=== PATIENT | female | born 1990 | race Caucasian/White ===

== ENCOUNTER 2018-10-21 23:06 | Emergency (ER) | payer BC, OTHER ==
[~2018-10-21] VITALS: Ht 154.9 cm; Wt 77.1 kg
[2018-10-21] MEDS ORDERED: EPIPEN0.3 MG/0.1 (23:12)
[2018-10-21] MEDS ORDERED: SERTRALINE HCL50 MG PO (23:12)
[2018-10-21] MEDS ORDERED: PEPCID40 MG PO (23:13)
[2018-10-22] MEDS ORDERED: EPIPEN0.3 MG/0.1 IM (01:53)
[2018-10-22 01:58] VITALS: BP 106/76
== END 2018-10-22 01:59 | disposition home or self-care (01) ==
LOC: ER 23:06
DX: O99.711 Diseases of the skin and subcutaneous tissue complicating pregnancy, first trimester (principal); T38.5X5A Adverse effect of other estrogens and progestogens, initial encounter; Y92.89 Other specified places as the place of occurrence of the external cause; Z3A.08 8 weeks gestation of pregnancy

== ENCOUNTER 2019-06-03 09:56 | Emergency (ER) | payer BC, OTHER ==
[~2019-06-03] VITALS: Ht 154.9 cm; Wt 84.8 kg
[~2019-06-03 09:56] MED LIST: EPIPEN0.3 MG/0.1; EPIPEN0.3 MG/0.1 IM; PEPCID40 MG PO; SERTRALINE HCL50 MG PO
[2019-06-03 10:09] LABS: URINE BILIRUBIN NEGATIVE (Negative); URINE BLOOD 2+ (Negative); URINE CLARITY CLEAR; URINE COLOR YELLOW; URINE GLUCOSE-RANDOM* NEGATIVE (Negative); URINE KETONES NEGATIVE (Negative); URINE NITRITE-REFLEX NEGATIVE (Negative); URINE PROTEIN (DIPSTICK) 1+ (Negative); URINE SPECIFIC GRAVITY <= 1.005 (1.005-1.035); URINE UROBILINOGEN 0.2 E.U./dl (0.2-1.0)
[2019-06-03 10:11] LABS: URINE LEUKOCYTES-REFLEX 2+ (Negative)
[2019-06-03 10:13] LABS: HEMATOCRIT 28.6 % (37.0-47.0); HEMOGLOBIN 8.7 gm/dL (12.0-15.0); MCH 21.7 pg (26.0-34.0); MCHC 30.5 g/dL (28.0-37.0); PLATELET COUNT 241 thou/uL (150-400); RBC 4.03 mil/uL (4.20-5.00); RDW 19.4 % (10.5-14.5); WBC 13.9 thou/uL (4.0-11.0)
[2019-06-03 10:21] LABS: BACTERIA-REFLEX None Seen /HPF (None Seen); CASTS None Seen /LPF (None Seen); CRYSTALS None Seen /LPF (None Seen); SQUAMOUS 0-3 Few /LPF (0-3); URINE RBC 0-2 Rare /HPF (0-2); URINE WBC-REFLEX 6-15 Few /HPF (0-5)
[2019-06-03 10:25] LABS: ANION GAP 12 mmol/L (7-16); APTT 24.5 Seconds (24.5-32.8); BUN 8 mg/dL (7-18); CALCIUM 9.3 mg/dL (8.5-10.1); CHLORIDE 105 mmol/L (98-107); CO2 24 mmol/L (21-32); CREATININE 0.8 mg/dL (0.6-1.0); GLUCOSE 91 mg/dL (74-106); POTASSIUM 3.8 mmol/L (3.5-5.1); PROTIME 9.4 Seconds (9.3-11.4); SODIUM 141 mmol/L (136-145)
[2019-06-03 10:32] LABS: MAGNESIUM 1.9 mg/dL (1.8-2.4); SGOT 26 U/L (15-37); SGPT 23 U/L (30-65); TOTAL BILIRUBIN 0.4 mg/dL (<0.1-1.0); TOTAL PROTEIN 7.7 g/dL (6.4-8.2); TROPONIN-I <0.06 ng/mL (<0.06); URIC ACID* 7.3 mg/dL (2.6-7.2)
[2019-06-03] MEDS ORDERED: ONDANSETRON ODT8 MG PO (10:38)
[2019-06-03] MEDS ORDERED: BACTRIM DS TAB1 EACH PO (10:38)
[2019-06-03 10:42] LABS: ABSOLUTE NEUTROPHILS 10.1 thou/uL (1.4-8.2); PLATELET ESTIMATE NORMAL
[2019-06-03 11:00] VITALS: BP 115/71
--- NOTE | 2019-06-04 14:19 | EKG ---
[address] [place] [address] ELECTROCARDIOGRAM REPORT Name: CHRISTOPHER FAULKNER Room #: [facility]P [facility]UMRadhaRadha#: [id number] ������������������ Admission: 06/03/19 ������������������ Attend Phys: Discharge: 06/03/19 ������������������ Date of : 89 Report #: [id number] ����������������������������������������������������������������� [id number] THIS REPORT FOR: //name// [facility] ED Test Date: 2019-06-03 Test Time: 10:02:46 Pat Name: CHRISTOPHER FAULKNER Department: Room: Gender: F [employer]: [facility] 1990 Requested By: Castro Diaz Order Number: [id number] MD: Baldev Craft Measurements Intervals [place] Rate: 72 P: 16 MS: 111 QRS: 46 QRSD: 95 T: 42 QT: 403 QTc: 442 Interpretive Statements Sinus rhythm Normal tracing No previous ECG available for comparison Electronically Signed On 06-04-2019 14:19:08 CDT by Baldev Craft [email or web address] ��������������������������������������������� <ELECTRONICALLY SIGNED> ���������������������������������������� By: Baldev Craft MD, [facility] ��������������������������������������������� 06/04/19 1419 1002 1002 Baldev Craft MD, FACC /EPI
== END 2019-06-03 11:00 | disposition home or self-care (01) ==
LOC: ER 09:56
PROVIDERS: Emergency Medicine
DX: O90.81 Anemia of the puerperium (principal); O86.20 Urinary tract infection following delivery, unspecified; R11.2 Nausea with vomiting, unspecified; R55 Syncope and collapse; Z88.8 Allergy status to other drugs, medicaments and biological substances